=== PATIENT | female | born 1955 | race Caucasian/White ===

== ENCOUNTER → 2018-02-17 08:23 | Outpatient (CLI) | payer OTHER, SELFPAY ==
[2018-02-17 10:36] LABS: Hemoglobin A1c 6.7 % (4.2-6.3)
== END ==
PROVIDERS: Family Provider Family Medicine; PCP Family Medicine; Visit Provider Family Medicine
DX: E11.9 Type 2 diabetes mellitus without complications (principal)
CPT/HCPCS: 36415; 83036

== ENCOUNTER → 2018-05-23 08:46 | Outpatient (CLI) | payer OTHER, SELFPAY ==
[2018-05-17 09:56] VITALS: BMI 42.0
[2018-05-23 09:43] LABS: ALB/GLOB Ratio 0.8 RATIO (0.9-2.4); AST(SGOT) 15 U/L (15-37); Alanine Aminotransfer ALT/SGPT 30 U/L (13-56); Albumin, Serum 3.3 g/dL (3.2-5.0); Alkaline Phosphatase 133 U/L (45-117); Anion Gap 6 (5-15); BUN 21 mg/dL (7-18); BUN/Creat Ratio 24.5 RATIO (10-20); Chloride 109 mmol/L (98-107); Cholesterol 132 mg/dL (200); Creatinine, Serum 0.86 mg/dL (0.55-1.02); EST Glomerular Filtration Rate 71 mL/min (>60); Est Glom Filt Rate - Afr Amer 86 mL/min (>60); Globulin 4.2 g/dL (2.2-4.2); Glucose 177 mg/dL (74-106); High Density Lipoprotein 39 mg/dL; Potassium 4.6 mmol/L (3.5-5.1); Protein, Total 7.5 g/dL (6.4-8.2); Sodium Level 142 mmol/L (136-145); Triglycerides 151 mg/dL; Very Low Density Lipoprotein 30 mg/dL (5-40)
[2018-05-23 10:39] LABS: Hemoglobin A1c 7.3 % (4.2-6.3)
--- OUTSIDE RECORDS SUMMARY | 2018-07-16 10:56 | XMS RPT_ITS ---
:1955 Author Organization OHIP Care Team Providers Name Role Phone Edda Dubois Attending Unavailable Brown, Herbert Attending Unavailable Brown, Herbert Referring Unavailable Brown, Herbert Primary Care Unavailable Brown, Herbert Attending Unavailable Brown, Herbert Referring Unavailable Brown, Herbert Primary Care Unavailable Brown, Herbert Attending Unavailable Brown, Herbert Referring Unavailable Brown, Herbert Attending Unavailable Brown, Herbert Referring Unavailable Brown, Herbert Attending Unavailable Enmanuel, Herbert Referring Unavailable Herbert Singer Primary Care Unavailable PROBLEMS PROBLEMS DATE TYPE CONDITION / CODE ATTENDING STATUS SOURCE 05/17/2018 Unknown E11.9 - Type 2 Herbert Singer Active [place] diabetes mellitus Community without Hospital complications / Repository E11.9(ICD-10) 05/17/2018 Unknown E78.5 - Enmanuel, Herbert Active [facility] Hyperlipidemia, Community unspecified / Hospital E78.5(ICD-10) Repository 03/29/2018 Unknown Z23 - Encounter for Herbert Singer Active [place] immunization / Community Z23(ICD-10) Hospital Repository 02/16/2018 Unknown E78.2 - Mixed Enmanuel, Herbert Active [place] hyperlipidemia / Community E78.2(ICD-10) Hospital Repository 02/16/2018 Unknown I10 - Essential Herbert Singer Active [place] (primary) Community hypertension / Hospital I10(ICD-10) Repository PROCEDURES PROCEDURES No Procedure Records FoundRESULTS RESULTS COMPREHENSIVE METABOLIC Collected: 05/23/2018 Status: F Source: T[place]A PROFIL 8:54 AM [facility], [facility] HOSPITAL REPOSITORY TYPE CODE TESTS RESULT OUT OF RANGE REFERENCE UNITS LAB L501.0100 74-106 mg/dL High GLU 177 Result Comment: Fasting Glucose result greater than or equal to 126 mg/dL suggests DIABETES MELLITUS per A.D.A. criteria. Please note revised GLUCOSE reference range effective 2017. LAB L501.1000 7-18 mg/dL High BUN 21 LAB L501.1100 0.55-1.02 mg/dL Normal CREAT,SERUM 0.86 Result Comment: The validity of the calculated GFR AND GFRAA in patients over 70 years has not been determined. Clinical correlation is essential. LAB L501.1110 >60 mL/min Normal EST GFR 71 Result Comment: Non- GFR Calc LAB L501.1115 >60 mL/min Normal EST GFR - AA 86 Result Comment: GFR Calc LAB L501.1300 10-20 RATIO High BUN/CRE 24.5 LAB L501.1500 6.4-8.2 g/dL T Normal PROT 7.5 LAB L501.1800 3.2-5.0 g/dL Normal ALB 3.3 LAB L501.1950 2.2-4.2 g/dL Normal GLOB 4.2 LAB L501.2000 0.9-2.4 RATIO Low A/G 0.8 LAB L501.2200 8.5-10.1 mg/dL CA Normal 9.0 LAB L501.4100 15-37 U/L Normal AST 15 LAB L501.4305 45-117 U/L High ALK P 133 LAB L501.4405 13-56 U/L Normal ALT 30 LAB L501.4600 0.20-1.00 mg/dL T Normal BILI 0.60 LAB L501.5300 136-145 mmol/L NA Normal 142 LAB L501.5600 3.5-5.1 mmol/L K Normal 4.6 LAB L501.5900 98-107 mmol/L High CL 109 LAB L501.6100 21.0-32.0 mmol/L Normal CO2 27.0 LAB L501.6200 5-15 Normal GAP 6 Performed By: #### L500.4050, L500.4100 #### [facility] [address], [place], [id number] LIPID PROFILE Collected: 05/23/2018 Status: F Source: [place] 8:54 AM [facility] REPOSITORY TYPE CODE TESTS RESULT OUT OF RANGE REFERENCE UNITS LAB L501.4900 200 mg/dL Normal CHOL 132 Result Comment: <200 mg/dL Desirable 200-240 mg/dL Borderline >240 mg/dL High Risk LAB L501.5000 mg/dL Normal TRIG 151 Result Comment: The drugs N-Acetylcysteine and Metamizole may falsely depress this assay. Serum Triglycerides Reference Interval Normal <150 mg/dL Borderline high 150 - 199 mg/dL High 200 - 499 mg/dL Very High > or = 500 mg/dL LAB L501.6400 mg/dL Low HDL 39 Result Comment: The drugs N-Acetylcysteine and Metamizole may falsely depress this assay. Reference Range HDL <40 mg/dL Low HDL Cholesterol HDL >or= 60 mg/dL High HDL Cholesterol LAB L501.6500 0-130 mg/dL Normal LDL 63 LAB L501.6600 5-40 mg/dL Normal VLDL 30 Performed By: #### L500.4050, L500.4100 #### [facility] [address], [place], [id number] HEMOGLOBIN A1C Collected: 05/23/2018 Status: F Source: [place] 8:54 AM [facility] REPOSITORY TYPE CODE TESTS RESULT OUT OF RANGE REFERENCE UNITS LAB L501.9985 4.2-6.3 % High HGB A1C 7.3 Performed By: #### L501.9985 #### [facility] [address], [address] INTERNAL MEDICINE Observed: 05/17/2018 Status: F Source: TANYA OFFICE VISIT 10:31 AM [facility] REPOSITORY [facility] [address] [place] [address] OFFICE VISIT Date of Service: 05/17/18 MR#: [id number] Acct: [id number] Name: PARIS MERIDA Rep #: [id number] : 1955 Provider: Herbert Singer DO Age/Sex: 62/F Location: [facility] Status: Signed Intake Vital Signs05/17/18 Height 5 ft 5 in Intake Visit Reasons: 3 MO FU Is patient in pain?: Yes (Back, Middle ) Pain scale (1-10): 4 Allergies No Known Allergies Allergy (Verified 05/17/18 09:54) Medications blood sugar diagnostic strips See Dose Instructions .ROUTE .MEDSUPPLY #20 ea 12/24/17 [History Confirmed 05/17/18] pen needle, diabetic 31 gauge x 5/16 See Dose Instructions .ROUTE .MEDSUPPLY #30 ea 12/24/17 [History Confirmed 05/17/18] atorvastatin 80 mg tablet 80 mg PO QHS #90 tab 02/15/18 [Rx Confirmed 05/17/18] empagliflozin 10 mg tablet 10 mg PO QDAY #90 tab 02/15/18 [Rx Confirmed 05/17/18] insulin lispro (U- 100) 100 unit/mL subcutaneous pen 10 unit SC TIDCM #15 ml 02/15/18 [Rx Confirmed 05/17/18] losartan 100 mg tablet 100 mg PO DAILY #90 tab 02/15/18 [Rx Confirmed 05/17/18] insulin glargine (U-100) 100 unit/mL (3 mL) subcutaneous pen 100 unit PO QHS #15 ml 05/17/18 [Rx Confirmed 05/17/18] Post menopausal: Yes Nurse's Note: Pt presents today for a f/u on DMT2. [facility] Medical History Hypertension (Chronic) Hyperlipidemia (Chronic) Diabetes (Chronic) Surgical History History of cholecystectomy (Acute) History of orthopedic surgery (Acute) History of tonsillectomy and adenoidectomy (Acute) Family History Brother Seizures Mother Diabetes Hypertension Ovarian cancer Sister Diabetes Hypertension Father Diabetes Prostate cancer Skin cancer Social History Smoking Status: Never smoker alcohol intake: never substance use type: does not use what type of physical activity do you participate in: walking HPI HPI Details: PARIS MERIDA, is a 62 F who presents to the office today for a checkup on her diabetes and evaluation of a back strain. ROS Const Constitutional: No anorexia, body ache, chills, fever(s), decreased energy, malaise, night sweats, weight change, sleep problems, other, snoring, weakness, frequent falls, headache(s), abnormal sleep pattern, change in appetite, excessive sweating or fatigue Eyes Eyes: No blurry vision, change in vision, double vision, discharge, dry eyes, bulging eyes, floaters, eye pain, light sensitivity, spots in vision, tunnel vision, other or visual disturbances ENT ENT: No ear pain, ear discharge, ear pressure, hearing loss, tinnitus, dizziness/vertigo, balance problems, nosebleed/epistaxis, nasal congestion, nasal obstruction, nose pain, sinus pressure, sinus pain, nasal discharge, post nasal drip, facial pain, dental pain, dry mouth, bad breath, hoarseness, mouth lesions, mouth pain, sore throat, difficulty swallowing, neck pain, abnormal hearing, headache(s), other, lip swelling, throat swelling or tongue swelling Resp Respiratory: No cough, change in phlegm color, chest congestion, excessive phlegm production, hemoptysis, pain on inspiration, shortness of breath, pain with cough, snoring, stridor, other or wheezing Cardio Cardiology: No chest pain at rest, chest pain with exertion, leg pain with exertion, shortness of breath, dyspnea on exertion, generalized swelling, irregular heart rhythm, lightheadedness, orthopnea, radiating jaw, neck or arm pain, fast heart rate, slow heart rate, palpitations, other or excessive sweating Gastro GI: No abdominal pain, belching, bloating, change in bowel habits, change in stool character, coffee ground emesis, constipation, cramping, diarrhea, heartburn, difficulty swallowing, feeling full early, excessive flatus, incontinent of stools, Vomiting blood/hematemesis, blood in stool, loose stools, Black,tarry stools, nausea/dyspepsia, pain with swallowing, vomiting or other Genitourinary-Female: No difficulty urinating, burning urination, painful urination, urinary incontinence, urinary frequency, urinary urgency, urinary hesitancy, urinary retention, blood in urine, Frequent nighttime urination/ nocturia, post void dribbling, suprapubic fullness, side pain, sexual problems, genital lesions, genital itching, hot flashes, abnormal periods, abnormal vaginal bleeding, absent period, painful periods, light periods, heavy periods, difficulty getting , painful intercourse, pelvic pain, vaginal dryness, vaginal odor, Vaginal Itching or other Musc Musculoskeletal: No joint pain, back pain, deformity, joint swelling, limited range of motion, loss of height, muscle cramps, muscle weakness, decreased muscle mass, body aches, neck pain, radiating pain into limb, stiffness, other, abnormal walking, numbness or tingling Skin Skin: No acne, hair loss, change in hair, nail changes, boil, change in skin color, dry skin, redness, excessive hair growth, yellowing of the skin, lesions, rash, skin pain, skin ulcer, sores, skin swelling, wounds, other or itching Breast Breast: No change in breast shape, breast lump, breast pain, breast skin changes, breast swelling, nipple discharge or other Neuro Neurology: No abnormal walking, abnormal hearing, abnormal movements, abnormal speech, unsteady gait/balance, dizziness, weakness, frequent falls, headache(s), lack of coordination, loss of vision, numbness, tingling, visual disturbances, restless legs, fainting, tremor(s), other, behavioral changes, confusion or memory loss Psych Psychiatric: No abnormal sleep pattern, No lack of enjoyment, No anxiety, No behavioral changes, No change in appetite, No confusion, No depression, No difficulty concentrating, No hopelessness, No irritability, No memory loss, No mood swings, No panic attacks, No paranoia, No Thoughts of harming yourself/Others, No hallucinations, No other Endo Endocrine: No change in body appearance, cold intolerance, excessive sweating, fatigue, flushing, heat intolerance, increased thirst/drinking, increased hunger, increased urination or other Aller/Imm Allergy/Immunologic: No food intolerance, itchy eyes, lip swelling, seasonal allergy symptoms, throat swelling, tongue swelling, hives, wheezing or other Darci/Lymp Hematologic/Lymphatic: No easy bleeding, easy bruising, enlarged lymph nodes or other Exam Const General: cooperative Nutritional Appearance: overweight Orientation: oriented x3 Resp Effort AND Inspection: normal respiratory effort Auscultation: Bilateral: Clear to Auscultation Cardio Rate: regular rate Rhythm: regular rhythm Musc Musculoskeletal: No muscle weakness Thoracic/Lumbar Spine: straight leg raise negative bilaterally, thoracic spinal tenderness (minimal pain, at T12, L1) Skin General: no rashes or lesions noted Neuro General: normal sensation to monofilament Extrem General: no clubbing, cyanosis or edema Psych Appearance: grossly normal Mental Status: mental status grossly normal Affect: normal affect Assessment AND Plan Problems 1. Mixed hyperlipidemia E78.2 2. Essential hypertension I10 3. Diabetes E11.9 4. Back strain S39.012A Plan Patient was seen for recheck on her diabetes. Her blood pressure is well controlled her weight is stable she encountered some heavy lifting several weeks ago and has a mild amount of back pain. Physical examination on her back and neurologic examination was normal I gave her some simple exercises to do and told her to take NSAIDs. As far as his diabetes control is concerned we will evaluate that with blood work that was ordered. Orders Orders: Medications Refilled: Plan Detail Follow Up 3 Months Coding Level of Care Code Off vis,est,level 3 Diagnoses Mixed hyperlipidemia E78.2 Hyperlipidemia type: mixed hyperlipidemia Essential hypertension I10 Hypertension type: essential hypertension Diabetes E11.9 Diabetes mellitus shelter insulin use: with shelter use Back strain S39.012A 05/17/18 1031 <Electronically signed by Herbert Singer DO> Date Herbert Singer DO Cosigner Signature: Date (if applicable) CC: OFFICE VISIT REPORT Observed: 03/29/2018 Status: F Source: [place] 12:54 PM [place] [address] [address] [place] [address] OFFICE VISIT Date of Service: 03/29/18 MR#: [id number] Acct: [id number] Patient: PARIS MERIDA Rep #: [id number] : 1955 Provider: Herbert Singer DO Age/Sex: 62/F Location: [facility] Status: Signed Intake Intake Visit Reasons: Flu shot Allergies No Known Allergies Allergy (Verified 03/29/18 11:37) Medications Valsartan [Diovan] 80 mg PO DAILY 10/20/13 [History Confirmed 03/29/18] blood sugar diagnostic strips See Dose Instructions .ROUTE .MEDSUPPLY #20 ea 12/24/17 [History Confirmed 03/29/18] pen needle, diabetic 31 gauge x 5/16 See Dose Instructions .ROUTE .MEDSUPPLY #30 ea 12/24/17 [History Confirmed 03/29/18] atorvastatin 80 mg tablet 80 mg PO QHS #90 tab 02/15/18 [Rx Confirmed 03/29/18] empagliflozin 10 mg tablet 10 mg PO QDAY #90 tab 02/15/18 [Rx Confirmed 03/29/18] insulin glargine (U-100) 100 unit/mL (3 mL) subcutaneous pen 100 unit PO QHS #15 ml 02/15/18 [Rx Confirmed 03/29/18] insulin lispro (U- 100) 100 unit/mL subcutaneous pen 10 unit SC TIDCM #15 ml 02/15/18 [Rx Confirmed 03/29/18] losartan 100 mg tablet 100 mg PO DAILY #90 tab 02/15/18 [Rx Confirmed 03/29/18] Office Meds Flucelvax Quad [id number] (PF) Performing Provider: Herbert Singer DO Administered by: Edda Duobis on 03/29/18 11:36 Dose Route Admin Location Lot Number Expiration Date NDC Filter Operator 0.5 mL IM Lt Deltoid [id number] 12/18/18 69162-394-19 SEQIRUS Assessment AND Plan Orders Orders: Medications Discontinued: Flucelvax Quad [id number] (PF) (flu vac qs 2017(4 yr up)CD(P0.5 mL IM ONCE 1 mL 0RF NS Z23 F)) Discontinued Reason: Office Medication has been Doc umented as given 03/29/18 1254 <Electronically signed by Herbert Singer DO> Date Herbert Singer DO Cosigner Signature: Date (if applicable) CC: HEMOGLOBIN A1C Collected: 02/17/2018 Status: F Source: [place] 8:35 AM [facility] REPOSITORY TYPE CODE TESTS RESULT OUT OF RANGE REFERENCE UNITS LAB L501.9985 4.2-6.3 % High HGB A1C 6.7 Performed By: #### L501.9985 #### [facility] [address] [place], [address] INTERNAL MEDICINE Observed: 02/15/2018 Status: F Source: [place] OFFICE VISIT 1:34 PM [facility] REPOSITORY [facility] [address] [place] [address] [place] [address] OFFICE VISIT Date of Service: 02/15/18 MR#: [id number] Acct: [id number] Name: PARIS MERIDA Rep #: [id number] : 1955 Provider: Herbert Singer DO Age/Sex: 62/F Location: [facility] Status: Signed Intake Vital Signs02/15/18 Height 5 ft 5 in 02/15/18 Weight: 253 lb 02/15/18 Body Mass Index (BMI) 42.0 02/15/18 Blood Pressure 145/84 Intake Visit Reasons: EST Is patient in pain?: No Allergies No Known Allergies Allergy (Verified 10/19/16 06:25) Medications Valsartan [Diovan] 80 mg PO DAILY 10/20/13 [History Confirmed 02/15/18] blood sugar diagnostic strips See Dose Instructions .ROUTE .MEDSUPPLY #20 ea 12/24/17 [History Confirmed 02/15/18] pen needle, diabetic 31 gauge x /16 See Dose Instructions .ROUTE .MEDSUPPLY #30 ea 12/24/17 [History Confirmed 02/15/18] atorvastatin 80 mg tablet 80 mg PO QHS #90 tab 02/15/18 [Rx Confirmed 02/15/18] empagliflozin 10 mg tablet 10 mg PO QDAY #90 tab 02/15/18 [Rx Confirmed 02/15/18] insulin glargine (U-100) 100 unit/mL (3 mL) subcutaneous pen 100 unit PO QHS #15 ml 02/15/18 [Rx Confirmed 02/15/18] insulin lispro (U-100) 100 unit/mL subcutaneous pen 10 unit SC TIDCM #15 ml 02/15/18 [Rx Confirmed 02/15/18] losartan 100 mg tablet 100 mg PO DAILY #90 tab 02/15/18 [Rx Confirmed 02/15/18] Post menopausal: Yes PFSH Medical History Hypertension (Chronic) Hyperlipidemia (Chronic) Diabetes (Chronic) Surgical History History of cholecystectomy (Acute) History of orthopedic surgery (Acute) History of tonsillectomy and adenoidectomy (Acute) Family History Brother Seizures Mother Diabetes Hypertension Ovarian cancer Sister Diabetes Hypertension Father Diabetes Prostate cancer Skin cancer Social History Smoking Status: Never smoker alcohol intake: never substance use type: does not use what type of physical activity do you participate in: walking HPI HPI Details: PARIS MERIDA, is a 62 F who presents to the office today for a check up on her diabetes, she voices no new complaints. ROS Const Constitutional: No weight change, body ache, chills, fatigue, sleep problems, fever(s), change in appetite, snoring, weakness, frequent falls, headache(s) or excessive sweating Eyes Eyes: No change in vision, eye pain, light sensitivity or blurry vision ENT ENT: No headache(s), abnormal hearing, ear pain, tinnitus, nasal congestion, sore throat or neck pain Resp Respiratory: No snoring, cough, shortness of breath or wheezing Cardio Cardiology: No excessive sweating, chest pain at rest, chest pain with exertion, shortness of breath, dyspnea on exertion, palpitations, orthopnea or lightheadedness Gastro GI: No abdominal pain, change in bowel habits, constipation, diarrhea, vomiting, nausea/dyspepsia or cramping Genitourinary-Female: No burning urination, painful urination, urinary incontinence, urinary frequency, abnormal vaginal bleeding, pelvic pain or other Musc Musculoskeletal: No neck pain, abnormal walking, joint pain, back pain, limited range of motion, numbness or tingling Skin Skin: No redness, dry skin, itching, lesions, wounds or rash Neuro Neurology: No weakness, frequent falls, headache(s), abnormal hearing, abnormal walking, numbness, tingling, abnormal speech, dizziness or memory loss Psych Psychiatric: No change in appetite, No memory loss, No anxiety, No depression, No Thoughts of harming yourself/Others Endo Endocrine: No fatigue, excessive sweating, cold intolerance, increased thirst/drinking, heat intolerance, flushing or increased hunger Aller/Imm Allergy/Immunologic: No wheezing, itchy eyes, hives or seasonal allergy symptoms Darci/Lymp Hematologic/Lymphatic: No easy bleeding, easy bruising or enlarged lymph nodes Exam Const General: cooperative, healthy appearing Nutritional Appearance: overweight Orientation: oriented x3 Resp Effort AND Inspection: normal respiratory effort Auscultation: Bilateral: Clear to Auscultation Assessment AND Plan Problems 1. Diabetes E11.9 2. Mixed hyperlipidemia E78.2 3. Essential hypertension I10 Plan This patient was seen on a routine diabetic recheck basis. Her last hemoglobin A1c from her old office records was 7.7. At that time a lipid screen and a complete metabolic profile was done and they were normal so I saw no need to repeat those tests. She is recently retired voices no complaints physical examination was unchanged from previous exams. Orders Orders: Medications New: Changed: Refilled: Plan Detail Follow Up 3 Months Coding Level of Care Code Off vis,est,level 3 Diagnoses Diabetes E11.9 Diabetes mellitus exterminator insulin use: with shelter use Mixed hyperlipidemia E78.2 Hyperlipidemia type: mixed hyperlipidemia Essential hypertension I10 Hypertension type: essential hypertension 02/15/18 1334 <Electronically signed by Herbert Singer DO> Date Herbert Singer DO Cosigner Signature: Date (if applicable) CC: ALLERGIES ALLERGIES DATE TYPE / CODE NAME / CODE REACTION SEVERITY SOURCE 05/17/2018 Drug No Known Unknown [facility] Allergy/4160 Allergies/F00 [facility] [address](SNOMED [id number](RXNOR Repository CT) M) ENCOUNTERS ENCOUNTERS ADMIT/DISCHARGE ACCOUNT ADMITTING ENCOUNTER LOCATION SOURCE NUMBER CLASS 05/23/2018 [id number] Ambulatory [place] Tanya 0 [facility] ing:LAB Repository 05/17/2018/ [id number] Ambulatory BMS[facility] [place] 8 [facility] [place] 03/29/2018/ [id number] Ambulatory BMS[facility]:B [place] 8 [facility] 02/17/2018 [id number] Ambulatory [facility] 8 [facility] ing:MTLAB Repository 02/15/2018/ [id number] Ambulatory BMSBuilding:B [place] 8 8 [facility] [place] 12/24/2017 [id number] Ambulatory BMSBuilding:B [place] 1 [facility] [place] PAYERS PAYERS ENCOUNTER GUARANTOR PAYER SUBSCRIBER SOURCE 05/23/2018 PARIS MERIDA3363 Primary PARIS Martínez VIOLA Insurance:CLINT SOLORIO: [facility] [place] BENEFIT [id number] Hospital [address]Bge: [phone]) ADMINISTRATIPolicy Repository [phone] () Number: [id number] Date:[id number] [facility] [address] [address]KV: 05/23/2018 Secondary NOT GIVENUNK Barry Insurance:SELF PAY Community INSURANCEPolicy Number: Hospital Effective Repository Date:2018-05-23 05/17/2018 PARIS DELGADO Primary PARIS BERRY Insurance:MERCSHAYE MERIDADOB: [place] BEN[place] [id number] Hospital [address]Kau: (482) ADMINISTRATIPolicy Repository [phone] () Number: [id number] Date:6470-37-64OFDY [facility] [id number] [place] [id number]: 05/17/2018 Secondary NOT GIVENUNK Tanya Insurance:SELF PAY Community INSURANCEPolicy Number: Hospital Effective Repository Date:2018-04-12 03/29/2018 PARIS BOTELLO63 Primary PARIS BERRY Insurance:CLINT MERIDADOB: [place] [id number] [id number]: [phone]) ADMINISTRATIPolicy Repository [phone] () Number: [id number] Date:[id number] [facility] [address] [address]JX: 03/29/2018 Secondary NOT GIVENUNK Tanya Insurance:SELF PAY Community INSURANCEPolicy Number: Hospital Effective Repository Date:2018-03-29 02/17/2018 PARIS DELGADO Primary PARIS BERRY Insurance:CLINT BERGERONB: [place] BEN[place] [id number] Hospital [address]Dzz: [phone]) ADMINISTRATIPolicy Repository [phone] () Number: [id number] Date:1947-81-49XZEJ [facility] [id number] [place] [address]QS: 02/17/2018 Secondary NOT GIVENUNK Tanya Insurance:SELF PAY Community INSURANCEPolicy Number: Hospital Effective Repository Date:2018-02-17 02/15/2018 PARIS MERIDA3363 Primary PARIS Martínez VIOLA Insurance:Clint BERGERONB: Community emperatriz SHAH Benefit [id number] Hospital [address]Dse: ([phone]) AdministatioPolicy Repository [phone] () Number: [id number] Date:2017-09-27 02/15/2018 Secondary NOT GIVENUNK Tanya Insurance:SELF PAY Community INSURANCEPolicy Number: Hospital Effective Repository Date:2018-02-15 12/24/2017 Paris Botello63 Primary Paris Martínez [place] Insurance:Homar ImerB: Community emperatriz Shah Number: [id number] [facility] [address]Hhk: (952) [id number] Repository [phone] () Date:2733-83-36[address], [place] [address]IA: 12/24/2017 Secondary NOT GIVENUNK Barry Insurance:SELF PAY Community INSURANCEPolicy Number: Hospital Effective Repository Date:2017-12-24
== END ==
PROVIDERS: Family Provider Family Medicine; PCP Family Medicine; Referring Provider Family Medicine; Visit Provider Family Medicine
DX: E11.9 Type 2 diabetes mellitus without complications (principal); E78.5 Hyperlipidemia, unspecified
CPT/HCPCS: 36415; 80053; 80061; 83036

== ENCOUNTER 2018-12-05 09:55 | Day surgery (SDC) | payer OTHER, SELFPAY ==
--- NOTE | 2018-11-29 02:08 | HP_ITS ---
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 Is patient in pain?: No Allergies amlodipine Allergy (Intermediate, Verified 11/29/18 13:27) hives Medications blood sugar diagnostic strips See Dose Instructions .ROUTE .MEDSUPPLY #20 ea 12/24/17 [History Confirmed 11/17/18] pen needle, diabetic 31 gauge x 11/03 See Dose Instructions .ROUTE .MEDSUPPLY #30 ea 12/24/17 [History Confirmed 11/17/18] losartan 100 mg tablet 100 mg PO DAILY #90 tab 02/15/18 [Rx Confirmed 11/17/18] hydroxyzine HCl 25 mg tablet 25 mg PO TID-QID PRN #30 tab 08/16/18 [Rx Confirmed 11/17/18] hydrochlorothiazide 12.5 mg tablet 12.5 mg PO DAILY #90 tab 08/30/18 [Rx Confirmed 11/17/18] atorvastatin 80 mg tablet 80 mg PO QHS #90 tab 11/17/18 [Rx Confirmed 11/17/18] empagliflozin 10 mg tablet 10 mg PO QDAY #90 tab 11/17/18 [Rx Confirmed 11/17/18] insulin glargine (U-100) 100 unit/mL (3 mL) subcutaneous pen 100 unit PO QHS #15 ml 11/17/18 [Rx Confirmed 11/17/18] insulin lispro (U- 100) 100 unit/mL subcutaneous pen 10 unit SC TIDCM #15 ml 11/17/18 [Rx Confirmed 11/17/18] Is last menstrual period known: No Post menopausal: Yes Patient : No PFSH Medical History Hypertension (Chronic) Hyperlipidemia (Chronic) Diabetes (Chronic) Surgical History History of cholecystectomy (Acute) History of orthopedic surgery (Acute) History of tonsillectomy and adenoidectomy (Acute) Family History Brother Seizures Mother Diabetes Hypertension Ovarian cancer Sister Diabetes Hypertension Father Diabetes Prostate cancer Skin cancer Social History Smoking Status: Never smoker alcohol intake: never substance use type: does not use what type of physical activity do you participate in: walking HPI HPI HPI: GASPER MERIDA, is a 63 F who presents to the office today for HPI HPI Surgical H&P: Yes HPI: GASPER MERIDA, is a 63 F who presents to the office today for mass on her back. She says is been growing for 5 years. It is bothering her especially when she is sitting or showering. It does not shrink and it only grows. There is no drainage. There is no redness. ROS General General: Yes weight change and fatigue; no appetite, colon cancer, breast cancer or weakness HEENT HEENT: No difficulty swallowing, eye injury, eye surgery, swollen glands or hoarseness Endo Endocrine: Yes diabetes mellitus; no thyroid disease, thyroid cancer, Hair loss, heat intolerance or cold intolerance Musc Musculoskeletal: No back problems, arthritis, rheumatoid arthritis, gout or joint pain Cardio Cardiovascular: Yes high blood pressure; no murmur, pacemaker, heart disease, atrial fibrillation, heart attack, heart stent, palpitations, shortness of breat with exertion or chest pain Resp Respiratory: No shortness of breath, No sleep apnea, No cough, No COPD, No asthma, No emphysema, No wheezing Gastro Gastrointestinal: No abdominal pain, No nausea or vomiting, No diarrhea, No constipation, No blood in stool, Yes acid reflux, No hemorrhoids, No ulcers, No gallbladder problem, No black,tarry stools Neuro Neurologic: No weakness Exam Const General: cooperative Orientation: alert, oriented x3 Resp Effort & Inspection: normal respiratory effort Auscultation: clear to auscultation bilaterally Cardio Rate: regular rate Rhythm: regular rhythm Heart Sounds: no murmurs GI Inspection: non-distended Palpation: soft, nontender Skin Other: Patient is a large soft lesion on her back which is approximately 10 cm in diameter. Assessment & Plan Problems 1. Lipoma of back D17.1 Plan Patient has a large painful lipoma of the back which is been growing for 5 years. It is giving her problems when she is sitting or showering. She would like this excised. I explained the procedure in detail as well as the risks of bleeding and infection. Patient would like this done in the operating room under MAC anesthesia. Patient understands risks and is willing to proceed. Corona Ramey MD Pager: [facility] [address] [place] [address], [address] [place] [address] Office: Coding Level of Care Code Off vis,new,level 3 Diagnoses Lipoma of back D17.1 11/29/18 1408 <Electronically signed by Corona Ramey MD> Date Corona Ramey MD I have re-examined the patient. There are no clinical changes since date of exam.
[2018-11-29 13:27] VITALS: BMI 41.2
[2018-12-05 10:41] VITALS: BP 142/76; PULSE 68; RESP 16; TEMP 36.9; O2SAT 97; BMI 40.8
[2018-12-05 11:05] LABS: Bedside Glucose 146 mg/dL (70-110)
[2018-12-05] MEDS: Cefazolin 2 GM in 0.9% Normal Saline 100 ML IV (11:29)
[2018-12-05 12:16] VITALS: BP 131/68; BP 142/76; PULSE 66; RESP 16; TEMP 36.3; O2SAT 87
--- NOTE | 2018-12-05 12:16 | PCM.OPRPT ---
Problem List (1) Lipoma of back Status: Chronic Report of Operation Date of Procedure: 12/05/18 Pre-Operative Diagnosis: Lipoma of the back Post-Operative Diagnosis: Lipoma of the back Surgery/Procedure Performed:: Excision of deep lipoma of the back measuring 12 cm in diameter Description of Surgical Findings:: Deep lipoma measuring 12 cm Specimen's removed: Lipoma of the back Description of Procedure: Patient was intubated and general anesthesia was induced and she was turned into a prone position. The back was prepped draped in usual sterile fashion. A horizontal incision was marked and then anesthetized. An incision was made with a scalpel and this was deepened to the lipoma. Using a combination of blunt and cautery dissection the lipoma was circumferentially dissected and delivered through the incision. It measured approximately 12 cm in diameter. The cavity was irrigated and suctioned dry. Electrocautery was used to obtain hemostasis. The deep dermis was closed with interrupted 3-0 Vicryl sutures which were also sutured to the lipoma cavity. The skin was then closed with a running 4-0 Monocryl suture and Dermabond was applied. Patient tolerated procedure well and was taken to PACU in stable condition. - Admit VTE Documentation VTE Mechan Device Prophylaxis: SCD's
[2018-12-05 12:30] VITALS: BP 135/62; BP 142/76; PULSE 64; RESP 18; O2SAT 98
[2018-12-05 12:30] LABS: Bedside Glucose 150 mg/dL (70-110)
--- NOTE | 2018-12-05 12:39 | DCINST_ITS ---
You will use the following diet at home:: Regular Your food should be the consistency of: Regular Your liquids should be the consistency of: Regular/Thin Discharge Activity: No Restrictions, May Shower - tomorrow Call your doctor if your incision/area has: Continuous Slow Oozing, Sudden Increased Bleeding, Increased Pain/ Swelling, Increased Redness, Foul Smelling Discharge, Swelling at the incision site Call your doctor if you observe: Fever of 101 or Higher Allergies/Adverse Reactions: Allergies amlodipine Allergy (Intermediate, Verified 12/02/18 13:28) hives Medications to take at Discharge losartan 100 mg tablet 100 mg PO DAILY #90 tab 02/15/18 hydroxyzine HCl 25 mg tablet 25 mg PO TID-QID PRN #30 tab 08/16/18 hydrochlorothiazide 12.5 mg tablet 12.5 mg PO DAILY #90 tab 08/30/18 atorvastatin 80 mg tablet 80 mg PO QHS #90 tab 11/17/18 empagliflozin 10 mg tablet 10 mg PO QDAY #90 tab 11/17/18 insulin glargine (U-100) 100 unit/mL (3 mL) subcutaneous pen 100 unit PO QHS #15 ml 11/17/18 insulin lispro (U- 100) 100 unit/mL subcutaneous pen 10 unit SC TIDCM #15 ml 11/17/18 Oxycodone HCl/Acetaminophen [Percocet 5/325] 1 - 2 tablet PO Q4H PRN PRN 4 Days #30 tablet 12/05/18 The following prescriptions were given: Oxycodone HCl/Acetaminophen [Percocet 5/325] 1 - 2 tablet PO Q4H PRN PRN 4 Days #30 tablet PRN Reason: Pain Primary Care Physician: Herbert Singer DO [Primary Care Provider] - Test Results: Test results from this visit will be discussed in further detail at your follow- up appointment, if applicable. Please Follow Up With: Corona Ramey MD When: Please call to schedule 2 week follow up appointment. [phone]
[2018-12-05 12:46] VITALS: BP 140/69; BP 142/76; PULSE 64; RESP 18; TEMP 36.3; O2SAT 100
--- NOTE | 2018-12-05 13:00 | LIP_PTH ---
PATIENT: GASPER MERIDA LOC: [facility] U#:[id number] AGE/SX: 63/F ROOM: RE12/05/[address]: Dr. Corona Ramey MD : 1955 BED: DIS: 12/05/2018 SPEC #: [id number] RECD: 12/05/18 13:06 STATUS: ENZO WADE #: [id number] SPEEDY: 12/05/18 13:[address]: Corona Ramey DEPT: SURGICAL PATHOLOGY RECD BY: Ramon Henderson ENTERED: 12/05/18 13:28 SP TYPE: LIPOMA OTHR DR: Dr. Herbert Singer, DO Tissues: Back, NOS Procedures: Surgery Specimen Level III HEADER OPERATION: Excision back lipoma PRE-OP DIAGNOSIS: Lipoma of back TISSUE SUBMITTED: Lipoma of back MICROSCOPIC DIAGNOSIS Soft tissue lesion of back, excision: Mature adipose tissue consistent with lipoma. AM:joo 12/06/18 MICROSCOPIC DESCRIPTION Slides are reviewed. GROSS DESCRIPTION Received in fixative is one container labeled with the patient's name and designated lipoma of back. The specimen consists of a lobulated fragment of yellow fatty tissue measuring 12.8 x 9 x 3.5 cm. Serial sections reveal homogenous yellow cut surfaces without areas of cyst formation, necrosis or myxoid change. Clinical Quality Manager sections are submitted in three cassettes. / AM:joo 12/05/18 TC:1 CPT: 15743
[2018-12-05 13:10] VITALS: BP 142/76
== END 2018-12-05 13:14 | disposition home or self-care (01) ==
LOC: SDC 09:56 → AC 10:06
PROVIDERS: Family Provider Family Medicine; PCP Family Medicine; Referring Provider Surgery; Visit Provider Surgery
PROC: (CPT 21931; principal; 2018-12-05 12:45)
DX: D17.1 Benign lipomatous neoplasm of skin and subcutaneous tissue of trunk (principal); E11.9 Type 2 diabetes mellitus without complications; I10 Essential (primary) hypertension; E78.00 Pure hypercholesterolemia, unspecified; Z78.0 Asymptomatic menopausal state; Z79.4 Long term (current) use of insulin; Z79.899 Other long term (current) drug therapy; Z88.8 Allergy status to other drugs, medicaments and biological substances
CPT/HCPCS: 00300; 21931; 82962; 88304; J7120; J2405

== ENCOUNTER → 2019-01-11 17:06 | Outpatient (CLI) | payer OTHER, SELFPAY ==
[2019-01-11 16:52] VITALS: BMI 40.8
--- NOTE | 2019-01-11 17:09 | RAD_ITS ---
STUDY: X-RAY - LEFT KNEE REASON FOR EXAM: Female, 63 years old. Left knee injury in October. No improvement. TECHNIQUE: 4 view(s) of the knee. COMPARISON: None. FINDINGS: Normal visualized distal femur. Normal visualized proximal tibia and fibula. Normal proximal tibiofibular articulation. There is no acute fracture, dislocation or destructive osseous pathology. There is mild degenerative arthrosis of the medial femorotibial compartment. Normal lateral femorotibial compartment. There is mild degenerative arthrosis of the patellofemoral articulation. There is no demonstrated joint effusion. The soft tissue structures are unremarkable. RAD/Knee 4 or More Views IMPRESSION: Degenerative arthrosis. Electronically Signed: Mauro Engel DO at 17:23 EDT Tel [phone], Service support ,
== END ==
PROVIDERS: Family Provider Family Medicine; PCP Family Medicine; Referring Provider Nurse Practitioner Family; Visit Provider Nurse Practitioner Family
DX: M25.562 Pain in left knee (principal)
CPT/HCPCS: 73564

== ENCOUNTER → 2019-07-13 10:45 | Outpatient (CLI) | payer OTHER, SELFPAY ==
[2019-07-13 10:12] VITALS: BMI 40.8
[2019-07-13 13:04] LABS: ALB/GLOB Ratio 0.8 RATIO (0.9-2.4); AST(SGOT) 15 U/L (15-37); Alanine Aminotransfer ALT/SGPT 27 U/L (13-56); Albumin, Serum 3.3 g/dL (3.2-5.0); Alkaline Phosphatase 108 U/L (45-117); Anion Gap 4 (5-15); BUN 18 mg/dL (7-18); BUN/Creat Ratio 22.5 RATIO (10-20); Calcium,Total 9.2 mg/dL (8.5-10.1); Chloride 107 mmol/L (98-107); Cholesterol 151 mg/dL (200); EST Glomerular Filtration Rate 77 mL/min (>60); Est Glom Filt Rate - Afr Amer 93 mL/min (>60); Glucose 107 mg/dL (74-106); High Density Lipoprotein 46 mg/dL; Potassium 4.6 mmol/L (3.5-5.1); Protein, Total 7.3 g/dL (6.4-8.2); Sodium Level 138 mmol/L (136-145); Triglycerides 166 mg/dL; Very Low Density Lipoprotein 33 mg/dL (5-40)
[2019-07-13 13:21] LABS: Microalbumin,Random Urine 8.5 mg/L (NO RANGE EST.)
== END ==
PROVIDERS: PCP Family Medicine; Referring Provider Family Medicine; Visit Provider Family Medicine
DX: I10 Essential (primary) hypertension (principal); E78.5 Hyperlipidemia, unspecified; E11.9 Type 2 diabetes mellitus without complications
CPT/HCPCS: 36415; 80053; 80061; 82043; 82570

== ENCOUNTER → 2020-07-08 | Outpatient (CLI) | payer OTHER, SELFPAY ==
[2020-03-13 15:21] VITALS: BMI 40.8
== END | disposition home or self-care (01) ==
PROVIDERS: PCP Family Medicine; Visit Provider Internal Medicine
DX: U07.1 COVID-19 (principal)
CPT/HCPCS: 87635; U0005; U0003

== ENCOUNTER 2020-08-27 22:50 | Outpatient (RCR) | payer OTHER, SELFPAY ==
[2020-03-13 15:21] VITALS: BMI 40.8
[2020-08-27] MEDS: COVID-19 VACC, MRNA(PFIZER)/PF 30 MCG/0.3 ML SYRINGE IM (14:03)
[2020-09-17] MEDS: COVID-19 VACC, MRNA(PFIZER)/PF 30 MCG/0.3 ML SYRINGE IM (14:03)
== END 2020-11-26 23:59 ==
LOC: IMMUN 22:50
PROVIDERS: PCP Family Medicine; Visit Provider Family Medicine
DX: Z23 Encounter for immunization (principal)
CPT/HCPCS: 0001A; 0002A; 91300

== ENCOUNTER → 2020-09-10 08:56 | Outpatient (CLI) | payer OTHER, SELFPAY ==
[2020-09-10 08:32] VITALS: BMI 42.4
[2020-09-10 12:55] LABS: AST(SGOT) 17 U/L (15-37); Alanine Aminotransfer ALT/SGPT 27 U/L (13-56); Albumin, Serum 3.4 g/dL (3.2-5.0); Alkaline Phosphatase 126 U/L (45-117); Anion Gap 8 (5-15); BUN 20 mg/dL (7-18); BUN/Creat Ratio 24.1 RATIO (10-20); Chloride 107 mmol/L (98-107); Cholesterol 166 mg/dL (200); Creatinine, Serum 0.83 mg/dL (0.55-1.02); EST Glomerular Filtration Rate 73 mL/min (>60); Est Glom Filt Rate - Afr Amer 89 mL/min (>60); Globulin 3.5 g/dL (2.2-4.2); Glucose 123 mg/dL (74-106); High Density Lipoprotein 49 mg/dL; Potassium 4.7 mmol/L (3.5-5.1); Protein, Total 6.9 g/dL (6.4-8.2); Sodium Level 144 mmol/L (136-145); Triglycerides 203 mg/dL; Very Low Density Lipoprotein 41 mg/dL (5-40)
[2020-09-10 13:02] LABS: Microalbumin,Random Urine 15.9 mg/L (NO RANGE EST.)
== END ==
PROVIDERS: PCP Family Medicine; Referring Provider Family Medicine; Visit Provider Family Medicine
DX: E78.5 Hyperlipidemia, unspecified (principal); I10 Essential (primary) hypertension
CPT/HCPCS: 36415; 80053; 80061; 82043; 82570

== ENCOUNTER 2020-10-29 06:19 | Day surgery (SDC) | payer MEDICARE, OTHER, SELFPAY ==
[2020-09-10 08:32] VITALS: BMI 42.4
--- NOTE | 2020-10-29 06:46 | H&P.OPEN ---
HPI - General HPI Narrative GASPER MERIDA, is a 64 F who presents for screening colonoscopy. Patient reports her last colonoscopy was 10 years ago. It was normal. She has no abdominal pain or blood in her stool. Patient does report she has a history of colon cancer in her mother over the age of 60. [facility] Medical History (Updated 10/29/20 @ 06:[address] Corona aRmey MD) Cancer Diabetes GERD (gastroesophageal reflux disease) History of epilepsy Hx of chronic arthritis Hyperlipidemia Hypertension Non-smoker Post-menopausal Restless legs Wears glasses Home Medications ibuprofen 600 mg tablet 600 mg PO TID PRN #30 tab 01/11/19 [Rx Last Taken Unknown] blood sugar diagnostic #50 ea 05/23/19 [Rx Last Taken Unknown] losartan 100 mg tablet 100 mg PO DAILY #90 tab 08/15/19 [Rx Last Taken Unknown] pen needle, diabetic 31 gauge x 11/03 #30 ea 02/08/20 [Rx Last Taken Unknown] atorvastatin 80 mg tablet 80 mg PO QHS #90 tab 03/13/20 [Rx Last Taken Unknown] hydrochlorothiazide 12.5 mg tablet 12.5 mg PO DAILY #20 tab 03/18/20 [Rx Last Taken Unknown] insulin glargine 100 unit/mL (3 mL) subcutaneous pen 100 unit PO QHS #15 ml 08/12/20 [Rx Last Taken Unknown] ascorbate calcium (vitamin C) 500 mg tablet 500 mg PO DAILY 09/10/20 [History Last Taken Unknown] cholecalciferol (vitamin D3) 25 mcg (1,000 unit) capsule 25 mcg PO DAILY 09/10/20 [History Last Taken Unknown] empagliflozin 10 mg tablet 10 mg PO QAM 09/10/20 [History Last Taken Unknown] zinc 50 mg tablet 50 mg PO DAILY 09/10/20 [History Last Taken Unknown] docusate sodium [Colace] 100 mg PO DAILY 10/24/20 [History Last Taken Unknown] insulin lispro [Humalog Pen] 10 unit SUBCUT TID 10/24/20 [History Last Taken Unknown] multivitamin,[id number]-[id number]-min [Multivitamin And Mineral] 1 tab PO DAILY 10/24/20 [History Last Taken Unknown] omeprazole 20 mg PO DAILY 10/24/20 [History Last Taken Unknown] Allergy/AdvReac Type Severity Reaction Status Date / Time amlodipine Allergy Intermediate hives Verified 10/24/20 08:32 Family History Brother Seizures Mother Diabetes Hypertension Ovarian cancer Sister Diabetes Hypertension Father Diabetes Prostate cancer Skin cancer Surgical History (Updated 10/24/20 @ 08:45 by Leta Bryan) History of cholecystectomy History of orthopedic surgery History of tonsillectomy and adenoidectomy Hx of colonoscopy s/p lipoma removal Social History (Updated 09/10/20 @ 08:[address] Herbert Singer, DO) Smoking Status: Never smoker alcohol intake: never substance use type: does not use what type of physical activity do you participate in: walking Past Medical/Surgical History Planned Operation Planned Operative Procedure/s: cscope open access S.O.S: No Previous Hospitalizations/Surgeries HX Hospitalizations: No HX of Surgeries: PILAR FEET 2000 T&A gallbladder 2017 cscope Any Problems With Anesthesia: No You/Your Family Experience Fever (Hyperthermia) With Anes: No Cholinesterase deficiency: No Cardiovascular Hx Chest Pain within Last 2 months: No Hx of Irregular Heartbeat and/or Afib: No Hx Heart Attack: No Hx Congestive Heart Failure: No Hx Rheumatic Fever: No Hx Hypertension: Yes (controlled with med) Hx Internal Defibrillator: No Hx Pacemaker: No Hx Cardiac Catheterization: No Hx Cardiac Surgery/Stents/Etc.: No Hx Stress Test: No Hx Pain in Legs when Walking/Leg Cramps: No Respiratory Chronic Cough: No HX of Shortness of Breath: No (ABLE TO WALK 2 FLIGHTS OF STAIRS WITHOUT SOB) Hoarseness: No Hx Chronic Obstructive Pulmonary Disease (COPD): No Hx Asthma: No Hx Emphysema: No Hx Sleep Apnea: No Hx Respiratory Tract Infection/Cold (presently): No Do You Snore Loudly (louder than talking or can be heard): No Do You Often Feel Tired/ Fatigued/ Sleepy Dring Daytime?: No Has Anyone Observed You Stop Breathing During Sleep?: No Result (for STOP score): Negative Hx Smoking: No Smoking Status: Never smoker Gastrointestinal Hx Gastroesophageal Reflux: No (occ heartburn) Hx Gastrointestinal Disorders: No Hx Gastrointestinal Bleed: No Hx Ulcer: No Hx Hiatal Hernia: No Difficulty Chewing/Swallowing: No Special diet followed at home: Yes (ada) Hx Unplanned Weight Loss of 20#: No HX Unplanned Weight Gain of 20#: No Neurological Hx Seizures: No (epilepsy as child) HX Syncope/Blackout Spells/Unconsciousness: No (.) Hx Transient Ischemic Attacks (TIA): No Hx Multiple Sclerosis: No Hx Parkinson's Disease: No Hx Head/Neck Injury: No Hx Headaches: Yes (occ) Hx Back Injury/Pain: No Recent Onset of Speech Difficulty: No Restless Legs: Yes Does patient have nerve stimulator: No Blood Disorder Hx Leukemia: No Bleeding Tendencies: No Hx Deep Vein Thrombosis: No Hx High Cholesterol: Yes (ON MED) Blood Transmitted Disease: No Hx Hepatitis: No Hx Cirrhosis: No Hx Anemia: No Hx Blood Disorders: No Reproduction : No Is Patient Lactating: No Hx Hysterectomy: No Hx Tubal Ligation: No Are You Post Menopause: Yes Genitourinary Hx Renal Disease: No Musculoskeletal Hx Arthritis: No Hx Rheumatoid Arthritis: No Hx Gout: No Recent Onset of an Orthopedic Problem: No Endocrine Hx Diabetes: Yes Insulin: Yes Thyroid Disease: No Hx Steroid Therapy: No Psycho/Social Hx Substance Use: No Hx Alcohol Use: No Hx Anxiety: No Hx Depression: No Mental Illness: No Hx Dementia: No Miscellaneous Hx Cancer: No Recent Exposure to Contagious Disease: No Hx of C-Diff: No Any Loose Teeth: No Allergies amlodipine Allergy (Intermediate, Verified 10/24/20 08:32) hives Discharge Is Pt Admitted From a Intermediate, or a Half-Way: No After D/C, Where Do you Plan to Go: Return Home From the PAT History Number of Risk Factors: 1 Physical Exam Const alert and oriented x3 Chest inspection of chest normal Resp normal respiratory effort Cardio regular rate and regular rhythm GI soft to palpation, non-tender and non-distended Assessment & Plan Assessment/Plan (1) Screen for colon cancer: PLAN: Patient is a 64-year-old female here for screening colonoscopy I explained endoscopy in detail to the patient. I explained the risks including but not limited to stroke or heart attack with anesthesia, perforation of the GI tract, bleeding, infection. I explained that any of these could necessitate further emergency surgery. The patient understands and all questions were answered sufficiently. The patient wishes to proceed with procedure. Corona Ramey MD Pager: [facility] [address] [place] [address], [address] [place] [phone] Office: Surgery Risks - Colonoscopy Risks Include but are not Limited To: Risks include but are not limited to: Bleeding, perforation requiring further surgery, inability to complete colonoscopy requiring barium enema.
--- NOTE | 2020-10-29 07:00 | HP_ITS ---
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 Is patient in pain?: No Allergies amlodipine Allergy (Intermediate, Verified 12/19/18 09:14) hives Medications losartan 100 mg tablet 100 mg PO DAILY #90 tab 02/15/18 [Rx Confirmed 12/19/18] hydroxyzine HCl 25 mg tablet 25 mg PO TID-QID PRN #30 tab 08/16/18 [Rx Confirmed 12/19/18] hydrochlorothiazide 12.5 mg tablet 12.5 mg PO DAILY #90 tab 08/30/18 [Rx Confirmed 12/19/18] atorvastatin 80 mg tablet 80 mg PO QHS #90 tab 11/17/18 [Rx Confirmed 12/19/18] empagliflozin 10 mg tablet 10 mg PO QDAY #90 tab 11/17/18 [Rx Confirmed 12/19/18] insulin glargine (U-100) 100 unit/mL (3 mL) subcutaneous pen 100 unit PO QHS #15 ml 11/17/18 [Rx Confirmed 12/19/18] insulin lispro (U- 100) 100 unit/mL subcutaneous pen 10 unit SC TIDCM #15 ml 11/17/18 [Rx Confirmed 12/19/18] Subjective Details: Patient is doing well with no complaints Objective Details: Patient's incision is healing well and is clean dry and intact with no fluid collection or erythema or ecchymosis. Assessment & Plan Problems 1. Lipoma of back D17.1 Plan Patient had a large lipoma excised in the back. She is doing well after surgery. She has no signs of infection and is healing well. Follow-up as needed. Pathology came back as lipoma. Corona Ramey MD Pager: [facility] [address] [place] [address], [address] [place] [address] Office: Coding Level of Care Code Global Post Op Diagnoses Lipoma of back D17.1
[2020-10-29 07:05] VITALS: BP 152/71; PULSE 69; RESP 16; TEMP 36.3; O2SAT 95; BMI 41.9
[2020-10-29] MEDS: Lactated Ringers 1,000 ML 100 ML IV (07:05)
--- NOTE | 2020-10-29 07:59 | OP.CCLET_ITS ---
10/29/2020 Herbert Singer Re : Colonoscopy procedure for Paris Rodney Dear Dr. Singer This procedure was performed on Thursday, October 29, 2020. My impressions and recommendations are as follows: Impressions : - The entire examined colon is normal on direct and retroflexion views. - No specimens collected. Recommendations : - Discharge patient to home. - Resume previous diet. - Continue present medications. - Repeat colonoscopy in 10 years for screening purposes. My findings are described in the full procedure note, which is enclosed. If I can be of further assistance, please feel free to contact me at Doctor phone number(s): , Work: . Sincerely, Corona Ramey MD 10/29/2020 7:58:43 AM This report has been signed electronically.
--- NOTE | 2020-10-29 07:59 | OP.COLON_ITS ---
Patient Name: Paris Rodney Procedure Date: 10/29/2020 7:34 AM Date of : 1955 Age: 64 Procedure: Colonoscopy Indications: Screening for colorectal malignant neoplasm Providers: Corona Ramey MD Referring MD: Herbert Singer Medicines: Monitored Anesthesia Care Patient Profile: This is a 64 year old female. Refer to note in patient chart for documentation of history and physical. Last Colonoscopy: 10 years ago. Complications: No immediate complications. Procedure: Pre-Anesthesia Assessment: - Prior to the procedure, a History and Physical was performed, and patient medications and allergies were reviewed. The patient's tolerance of previous anesthesia was also reviewed. The risks and benefits of the procedure and the sedation options and risks were discussed with the patient. All questions were answered, and informed consent was obtained. Prior Anticoagulants: The patient has taken no previous anticoagulant or antiplatelet agents. After reviewing the risks and benefits, the patient was deemed in satisfactory condition to undergo the procedure. After I obtained informed consent, the scope was passed under direct vision. Throughout the procedure, the patient's blood pressure, pulse, and oxygen saturations were monitored continuously. The Colonoscope was introduced through the anus and advanced to the cecum, identified by appendiceal orifice and ileocecal valve. The colonoscopy was performed without difficulty. The patient tolerated the procedure well. The quality of the bowel preparation was good. Scope In: 7:42:48 AM Scope Withdrawal Time 0 hours 6 minutes 12 seconds Scope Out: 7:55:28 AM Total Procedure Duration Time 0 hours 12 minutes 40 seconds Findings: The entire examined colon appeared normal on direct and retroflexion views. Impression: - The entire examined colon is normal on direct and retroflexion views. - No specimens collected. Recommendation: - Discharge patient to home. - Resume previous diet. - Continue present medications. - Repeat colonoscopy in 10 years for screening purposes. Procedure Code(s): --- Professional --- 62285, Colonoscopy, flexible; diagnostic, including collection of specimen(s) by brushing or washing, when performed (separate procedure) Diagnosis Code(s): --- Professional --- Z12.11, Encounter for screening for malignant neoplasm of colon CPT copyright 2017 [employer]. All rights reserved. The codes documented in this report are preliminary and upon screen stretcher review may be revised to meet current compliance requirements. Corona Ramey MD 10/29/2020 7:58:43 AM This report has been signed electronically. Number of Addenda: 0 Note Initiated On: 10/29/2020 7:34 AM
[2020-10-29 08:00] VITALS: BP 116/63; BP 152/71; PULSE 58; RESP 16; TEMP 36.2; O2SAT 97
[2020-10-29 08:05] VITALS: BP 114/60; BP 152/71; PULSE 59; RESP 16; O2SAT 96
[2020-10-29 08:10] VITALS: BP 123/65; BP 152/71; PULSE 63; RESP 16; O2SAT 96
[2020-10-29 08:15] VITALS: BP 130/61; BP 152/71; PULSE 60; RESP 16; TEMP 36.3; O2SAT 95
[2020-10-29 08:33] VITALS: BP 152/71
[2020-10-29 09:50] LABS: Bedside Glucose 97 mg/dL (70-110)
== END 2020-10-29 09:05 ==
LOC: EN 06:20 → AC 06:21
PROVIDERS: PCP Family Medicine; Referring Provider Family Medicine; Visit Provider Surgery
PROC: 0DJD8ZZ Inspection of Lower Intestinal Tract, Via Natural or Artificial Opening Endoscopic (ICD-10-PCS; CPT 45378; principal; 2020-10-29 07:25)
DX: Z12.11 Encounter for screening for malignant neoplasm of colon (principal); I10 Essential (primary) hypertension; E11.9 Type 2 diabetes mellitus without complications; E78.5 Hyperlipidemia, unspecified; K21.9 Gastro-esophageal reflux disease without esophagitis; Z79.4 Long term (current) use of insulin; Z79.899 Other long term (current) drug therapy; Z80.0 Family history of malignant neoplasm of digestive organs
CPT/HCPCS: G0105; 82962; J7120; J2405

== ENCOUNTER 2021-09-10 09:15 | Outpatient (CLI) | payer MEDICARE, SELFPAY ==
[2021-09-10 12:23] LABS: Absolute Lymphocyte Count 1.98 X10^3/uL (0.83-4.51); Absolute Neutrophil Count 6.2 X10^3/uL (2.0-7.7); Basophil# 0.06 X10^3/uL; Basophil% 0.7 % (0-1); Eosinophil# 0.25 X10^3/uL; Eosinophils% 2.7 % (0-5); Hemoglobin 12.9 g/dL (12.0-15.0); Lymphocyte # 1.98 X10^3/ul (0.83-4.51); Lymphocyte % 21.5 % (19-41); Mean Corp Hgb Conc 31.5 g/dL (32-36); Mean Corpuscular Hgb 30.1 pg (27.0-32.0); Mean Corpuscular Volume 95.8 fL (81-99); Mean Platelet Vol. 10.3 fl (6.2-12.0); Monocyte# 0.69 X10^3/uL; Monocyte% 7.5 % (0-10); NRBC Flagged by Analyzer 0 % (0-5); Neutrophil % 67.4 % (47-70); Platelet Count 217 K/mm3 (150-450); RBC Distribution Width CV 15.1 % (11.6-14.6); RBC Distribution Width SD 53.1 fl (35.1-43.9); Red Blood Count 4.28 M/mm3 (4.2-5.4); White Blood Count 9.2 K/mm3 (4.4-11.0)
[2021-09-10 13:01] LABS: ALB/GLOB Ratio 0.8 RATIO (0.9-2.4); AST(SGOT) 19 U/L (15-37); Alanine Aminotransfer ALT/SGPT 24 U/L (13-56); Albumin, Serum 3.4 g/dL (3.2-5.0); Alkaline Phosphatase 125 U/L (45-117); Anion Gap 4 (5-15); BUN 20 mg/dL (7-18); BUN/Creat Ratio 24.4 RATIO (10-20); Calcium,Total 9.1 mg/dL (8.5-10.1); Chloride 106 mmol/L (98-107); Cholesterol 146 mg/dL (200); Creatinine, Serum 0.82 mg/dL (0.55-1.02); EST Glomerular Filtration Rate 74 mL/min (>60); Est Glom Filt Rate - Afr Amer 90 mL/min (>60); Glucose 99 mg/dL (74-106); High Density Lipoprotein 42 mg/dL; Potassium 4.2 mmol/L (3.5-5.1); Protein, Total 7.4 g/dL (6.4-8.2); Sodium Level 139 mmol/L (136-145); Triglycerides 164 mg/dL; Very Low Density Lipoprotein 33 mg/dL (5-40)
== END 2021-09-10 23:59 | disposition home or self-care (01) ==
PROVIDERS: PCP Family Medicine; Referring Provider Physician Assistant; Visit Provider Physician Assistant
DX: E11.9 Type 2 diabetes mellitus without complications (principal); Z79.4 Long term (current) use of insulin; E78.2 Mixed hyperlipidemia; I10 Essential (primary) hypertension
CPT/HCPCS: 36415; 80053; 80061; 85025

== ENCOUNTER 2021-09-25 14:05 | Outpatient (CLI) | payer MEDICARE, SELFPAY ==
--- NOTE | 2021-09-25 14:07 | BI_ITS ---
MAMMOGRAPHY - BILATERAL SCREENING REASON FOR EXAM: Female, 65 years old. Routine annual screening examination. PERTINENT HISTORY: Non-contributory. TECHNIQUE: Digital bilateral breast brianne (3D mammographic acquisition) in the CC and MLO projections. 2-D mediolateral oblique (MLO) and craniocaudad (CC) views of both breasts were obtained. CAD: Full Field Digital Mammography with Computer Added Detection was performed. COMPARISON: None. Baseline examination. FINDINGS: Breast Composition: There are scattered areas of fibroglandular density. There are no dominant masses or suspicious calcifications. No other significant abnormalities are identified. BI/SCRN MAMM (CAD)W/BRIANNE BILAT IMPRESSION: Negative screening mammogram. Yearly followup mammogram recommended. (A) ASSESSMENT CATEGORY: BIRADS Category 1: Negative. A letter regarding these results will be sent to the patient by the facility within 30 days. Approximately 10% of breast cancers are not detected by mammography. A normal mammogram should not delay biopsy of a clinically suspicious abnormality. [id number] Electronically Signed: Emerson Torres MD at 15:01 EDT ,
== END 2021-09-25 23:59 | disposition home or self-care (01) ==
LOC: OPBI 14:06
PROVIDERS: PCP Family Medicine; Visit Provider Physician Assistant
DX: Z12.31 Encounter for screening mammogram for malignant neoplasm of breast (principal)
CPT/HCPCS: 77063; 77067

== ENCOUNTER → 2022-03-19 | Outpatient (CLI) | payer MEDICARE, SELFPAY ==
--- NOTE | 2022-03-19 09:25 | RAD_ITS ---
EXAM: XR LUMBOSACRAL SPINE, 2 OR 3 VIEWS CLINICAL INDICATION: LOW BACK PAIN TECHNIQUE: Frontal and lateral views of the lumbar spine and sacrum. This report was created using [employer] report [employer] technology. COMPARISON: None. FINDINGS: VERTEBRAE: Normal. Preserved vertebral body height. No fracture. No spondylolisthesis. Preservation of the normal lumbar lordosis. No significant facet arthropathy. DISC SPACES: Disc space narrowing noted at the L2-3 and L3-4 levels associated with mild to moderate vertebral body osteophytosis. RAD/Lumbar Spine 2 or 3 Views IMPRESSION: L2-3 and L3-4 spondylosis. Electronically Signed: Fady Shen MD at 11:01 EDT ,
== END | disposition home or self-care (01) ==
LOC: MTRAD 09:22
PROVIDERS: PCP Family Medicine; Referring Provider Family Medicine; Visit Provider Family Medicine
DX: M47.816 Spondylosis without myelopathy or radiculopathy, lumbar region (principal); G89.29 Other chronic pain
CPT/HCPCS: 72100

== ENCOUNTER 2022-04-22 11:30 | Outpatient (RCR) | payer MEDICARE, SELFPAY ==
--- NOTE | 2022-03-27 08:25 | HP.PTEVAL_ITS ---
Patient's Visit Information GASPER MERIDA is a 66 year old F referred to Physical Therapy by Dr. Herbert Singer DO with a diagnosis of LOW BACK PAIN ,CHRONIC PAIN. Date of Evaluation: 03/27/22 Physical Therapist: Kevin Redd, PT, Cert MDT, OCS - Visit Plan Frequency: 2x /Week Duration: 4 Weeks Plan: PT INTERVENTIONS DLS ,MIKE EX'S ,POSTURAL EX'S ,MODALTIES AND POSTURE TRAINING /ACTIVITY MODIFICATION - Subjective This 66 y/o female presents to physical therapy with lumbar pain and radicular symptoms in legs. Patient has had LBP for ~ 1 year which progressively worsen. Seen DR x-rays DDD and recommended PT . Located symmetrical lumbar and right lateral leg to foot. Aggravating factors walking ,standing extended , elevation from chair ,lifting/bending, Alleviating factors sitting ,rest. Denies paresthesia/tingling -. Bowel/bladder -. Coughing/sneezing-. Patient sleeping good. No MEDS .No h/o trauma or injury. Patient condition affects QOL and function. Patient goals to have no pain. VOCATION: retired. SOCAIL: single - Pain Bilateral Back Pain Intensity (Out of 10): 8 Pain Intensity Range: 10 Right Lower Extremity Pain Intensity (Out of 10): 6 Pain Intensity Range: 10 - Objective POSTURE: mild forward posture. GAIT: reciprocal pattern mild forward posture. NEURO: denies paresthesia/tingling ,reflexes L3-4,L4-5,L5-S1 1/3. SYMMTRIES: align. MMT: quads/hams 4/5 ,ankle 4/5 ,hip flexion 4/5. LUMBAR ROM: flexion min loss ,extension WFL ,side glides min loss. FLEXABLITY : hamstrings WFL - Special Tests L/S Slump test left side: Negative L/S Slump test right side: Negative L/S Left Straight Leg Raise: Negative L/S Right Straight Leg Raise: Negative Lumbar Standing: Flexion - Mechanical Response: No effect Lumbar Standing: Flexion - Symptoms During Testing: Increases Lumbar Standing: Flexion - Symptoms After Testing: No worse Lumbar Standing: Extension - Mechanical Response: No effect Lumbar Standing: Extension - Symptoms During Testing: Decreases Lumbar Standing: Extension - Symptoms After Testing: No better Lumbar Standing: Right Side Glides - Mechanical Response: No effect Lumbar Standing: Right Side [place] - Symptoms During Testing: No effect Lumbar Standing: Right Side [place] - Symptoms After Testing: No effect Lumbar Standing: Left Side [place] - Mechanical Response: No effect Lumbar Standing: Left Side [place] - Symptoms During Testing: No effect Lumbar Standing: Left Side [place] - Symptoms After Testing: No effect - Balance/Special Test Scores Oswestry Low Back Score: 23 - Goals Goal 1:: Patient to be I with HEP lumbar Goal Time Frame: 4-6 Weeks Goal 2:: Patient to demonstrate 50% improvement with increase function and less pain Goal Time Frame: 4-6 Weeks Goal 3:: Patient to improve lumbar ROM for function of recovery to tie shoes Goal Time Frame: 4-6 Weeks Goal 4:: Patient to improve back oswestry score by 5 point to Improve QOL Goal Time Frame: 4-6 Weeks Goal 5:: Patient improve posture for ADL's 90 % OF THE TIME Goal Time Frame: 4-6 Weeks - Rehabilitation Potential Physical Therapy Diagnosis: Patient has lumbar pain worse with positioning and and motion testing standing walking better with sitting thus benefit from skilled PT Rehabilitation Potential: Good - Anticipated Interventions Patient/Client Instruction: Educate patient on: Condition, Plan of Care For the Purpose of:: To decrease pain, To improve nutrient delivery to tissue, To improve muscle performance and motor function, To improve ability to perform ADL's, To increase tolerance to activity/condition/position, To improve ability of physical actions for home/community/work/leisure, To improve health of tissue, To decrease soft tissue restriction, To increase flexibility/ROM, To improve endurance, To prevent re-injury, To improve tolerance to ADL's Therapeutic Exercise to Include: Strength training, Body mechanics, Postural training, Flexibilty training, Dynamic Lumbar Stabilization For the Purpose of:: To decrease pain, To increase ROM, To improve muscle performance and motor function, To increase tolerance to activity/condition/position, To improve ability of physical actions for home/community/work/leisure, To increase flexibility/ROM, To assume or resume ADL's, To reduce risk of recurrence, To improve self management, To improve tolerance to ADL's TENS: Yes IF ES: Yes Cryotherapy (ice pack, ice massage): Yes Thermo therapy (hot pack): Yes Ultrasound (thermal/non thermal): Yes For the Purpose of:: To decrease pain, To increase ROM, To improve nutrient delivery to tissue, To increase oxygenation perfusion, To improve health of tissue, To decrease soft tissue restriction Thank you for the opportunity to evaluate your patient. For Medicare and Medicare HMO plans, please review the plan of care and approve it. It will need to be FAXED BACK to us at [phone] for Medicare purposes. For Medicare only, by signing this I certify the plan of care. Please let me know if there are questions or concerns regarding this plan of care. Physician Sig nature: Date:
--- NOTE | 2022-04-22 11:42 | HP.PTREVAL ---
Dr. Herbert Singer, DO, It has been my pleasure to treat GASPER MERIDA over the last 6 visits for LOW BACK PAIN ,CHRONIC PAIN. Please see the progress note below for an update on the physical therapy plan of care! Subjective: Doingbgood ..no pain Objective/Function: Doing well overall no pain improved Plan Plan: PT INTERVENTIONS DLS ,MIKE EX'S ,POSTURAL EX'S ,MODALTIES AND POSTURE TRAINING /ACTIVITY MODIFICATION Balance/Gait/Functional tests - Balance/Special Test Scores Oswestry Low Back Score: 23 Goals Goal 1:: Patient to be I with HEP lumbar Goal Time Frame: 4-6 Weeks Goal 2:: Patient to demonstrate 50% improvement with increase function and less pain Goal Time Frame: 4-6 Weeks Goal 3:: Patient to improve lumbar ROM for function of recovery to tie shoes Goal Time Frame: 4-6 Weeks Goal 4:: Patient to improve back oswestry score by 5 point to Improve QOL Goal Time Frame: 4-6 Weeks Goal 5:: Patient improve posture for ADL's 90 % OF THE TIME Goal Time Frame: 4-6 Weeks Anticipated Interventions Patient/Client Instruction: Educate patient on: Condition, Plan of Care For the Purpose of:: To decrease pain, To improve nutrient delivery to tissue, To improve muscle performance and motor function, To improve ability to perform ADL's, To increase tolerance to activity/condition/position, To improve ability of physical actions for home/community/work/leisure, To improve health of tissue, To decrease soft tissue restriction, To increase flexibility/ROM, To improve endurance, To prevent re-injury, To improve tolerance to ADL's Therapeutic Exercise to Include: Strength training, Body mechanics, Postural training, Flexibilty training, Dynamic Lumbar Stabilization For the Purpose of:: To decrease pain, To increase ROM, To improve muscle performance and motor function, To increase tolerance to activity/condition/position, To improve ability of physical actions for home/community/work/leisure, To increase flexibility/ROM, To assume or resume ADL's, To reduce risk of recurrence, To improve self management, To improve tolerance to ADL's TENS: Yes IF ES: Yes Cryotherapy (ice pack, ice massage): Yes Thermo therapy (hot pack): Yes Ultrasound (thermal/non thermal): Yes For the Purpose of:: To decrease pain, To increase ROM, To improve nutrient delivery to tissue, To increase oxygenation perfusion, To improve health of tissue, To decrease soft tissue restriction Please do not hesitate to contact me at [phone] by phone or if you have questions or concerns regarding this new plan of care! Sincerely, Kevin Redd, PT, Cert MDT, OCS
--- NOTE | 2022-04-22 12:10 | HP.PTDCSUM ---
It has been my pleasure to treat GASPER MERIDA referred by Dr. Herbert Singer DO, with the diagnosis of LOW BACK PAIN ,CHRONIC PAIN for a total of 7 visit(s). Discharge Date: 04/22/22 Please see the following information for a summary of their discharge status. Subjective: Doing well Bilateral Back Pain Intensity (Out of 10): 0 Right Lower Extremity Pain Intensity (Out of 10): 0 % Improvement: 80 Objective/Function: POSTURE: WFL. GAIT: RECIPROCAL PATTERN. MMT: QUADS/HAMS/HIP 4/5. LUMBAR ROM: FLEXION WFL,EXTENSION Goal 1:: Patient to be I with HEP lumbar Goal Progress: Goal Met Goal 2:: Patient to demonstrate 50% improvement with increase function and less pain Goal Progress: Goal Met Goal 3:: Patient to improve lumbar ROM for function of recovery to tie shoes Goal Progress: Goal Met Goal 4:: Patient to improve back oswestry score by 5 point to Improve QOL Goal Progress: Goal Met Goal 5:: Patient improve posture for ADL's 90 % OF THE TIME Goal Progress: Goal Met Plan: D/C Discharge Comments: HEP If there are questions or concerns regarding this patient's physical therapy, please feel free to call me at [phone]. Thank you for the referral of this patient. Sincerely, Kevin Redd PT, Cert MDT, OCS Balance/Gait/Functional tests - Balance/Special Test Scores Oswestry Low Back Score: 0
== END 2022-04-22 19:00 | disposition home or self-care (01) ==
LOC: PT 11:30
PROVIDERS: PCP Family Medicine; Referring Provider Family Medicine; Visit Provider Family Medicine
DX: M54.50 Low back pain, unspecified (principal); G89.29 Other chronic pain
CPT/HCPCS: 97110; 97162; 97530

== ENCOUNTER → 2022-11-18 | Outpatient (CLI) | payer MEDICARE, SELFPAY ==
[2022-11-18 13:21] LABS: ALB/GLOB Ratio 0.9 RATIO (0.9-2.4); AST(SGOT) 18 U/L (15-37); Alanine Aminotransfer ALT/SGPT 28 U/L (13-56); Albumin, Serum 3.5 g/dL (3.2-5.0); Alkaline Phosphatase 116 U/L (45-117); Anion Gap 7 (5-15); BUN 19 mg/dL (7-18); BUN/Creat Ratio 20.7 RATIO (10-20); Calcium,Total 9.4 mg/dL (8.5-10.1); Chloride 105 mmol/L (98-107); Cholesterol 159 mg/dL (200); Creatinine, Serum 0.92 mg/dL (0.55-1.02); EST Glomerular Filtration Rate 65 mL/min (>60); Est Glom Filt Rate - Afr Amer 79 mL/min (>60); Globulin 3.9 g/dL (2.2-4.2); Glucose 170 mg/dL (74-106); High Density Lipoprotein 44 mg/dL; Potassium 4.2 mmol/L (3.5-5.1); Protein, Total 7.4 g/dL (6.4-8.2); Sodium Level 140 mmol/L (136-145); Triglycerides 252 mg/dL; Very Low Density Lipoprotein 50 mg/dL (5-40)
== END | disposition home or self-care (01) ==
LOC: BIMLAB 09:26
PROVIDERS: PCP Family Medicine; Visit Provider Family Medicine
DX: E11.9 Type 2 diabetes mellitus without complications (principal); Z79.4 Long term (current) use of insulin
CPT/HCPCS: 36415; 80053; 80061

== ENCOUNTER → 2022-11-19 | Outpatient (CLI) | payer MEDICARE, SELFPAY ==
--- NOTE | 2022-11-19 14:32 | BI_ITS ---
MAMMOGRAPHY - BILATERAL SCREENING REASON FOR EXAM: Female, 67 years old. Routine annual screening examination. PERTINENT HISTORY: Non-contributory. TECHNIQUE: Digital bilateral breast brianne (3D mammographic acquisition) in the CC and MLO projections. 2-D mediolateral oblique (MLO) and craniocaudad (CC) views of both breasts were obtained. CAD: Full Field Digital Mammography with Computer Added Detection was performed. COMPARISON: Comparison is made with prior study dated September 25, 2021. FINDINGS: Breast Composition: The breasts are almost entirely fatty. There are no dominant masses or suspicious calcifications. No other significant abnormalities are identified. There has been no significant change since the prior study. BI/SCRN MAMM (CAD)W/BRIANNE BILAT IMPRESSION: Stable bilateral screening mammogram. Yearly follow-up mammogram recommended. (A) ASSESSMENT CATEGORY: BIRADS Category 1: Negative. A letter regarding these results will be sent to the patient by the facility within 30 days. Approximately 10% of breast cancers are not detected by mammography. A normal mammogram should not delay biopsy of a clinically suspicious abnormality. [id number] Electronically Signed: Emerson Torres MD at 15:16 EDT ,
== END | disposition home or self-care (01) ==
LOC: OPBI 14:30
PROVIDERS: PCP Family Medicine; Referring Provider Family Medicine; Visit Provider Family Medicine
DX: Z12.31 Encounter for screening mammogram for malignant neoplasm of breast (principal)
CPT/HCPCS: 77063; 77067

== ENCOUNTER → 2023-06-24 | Outpatient (CLI) | payer MEDICARE, SELFPAY ==
--- NOTE | 2023-06-24 11:56 | RAD_ITS ---
STUDY: X-RAY - LEFT KNEE REASON FOR EXAM: Female, 67 years old. Knee pain. TECHNIQUE: 3 views of the left knee. COMPARISON: Left knee radiographs dated 01/11/2019. FINDINGS: Normal visualized distal femur. Normal visualized proximal tibia and fibula. Normal proximal tibiofibular articulation. There is no acute fracture, dislocation or destructive osseous pathology. There is unchanged mild degenerative arthrosis of the medial femorotibial compartment. There is unchanged mild degenerative arthrosis of the lateral femorotibial compartment. There is unchanged mild degenerative arthrosis of the patellofemoral articulation. There is no demonstrated joint effusion. There are atherosclerotic calcifications. RAD/Knee 3 Views IMPRESSION: Unchanged mild tricompartment degenerative arthrosis. Electronically Signed: David Hernandez MD at 14:28 EST ,
--- OUTSIDE RECORDS SUMMARY | 2023-06-24 12:32 | XMS RPT_ITS | CCD ---
Author Name Unknown Address [address] [place] [address] Organization [facility] Care Team Providers Care Restoration Officer Name Role Phone Corona Ramey MD Unavailable KEO Narayan RN, Lolly Fuentes Unavailable Unavailabl e KEO Narayan RN, Lolly Fuentes Unavailable Unavailfeliciano e Medications Completed/Discontinued Medications Medication Drug Class(es) Dates Sig (Normalized) Sig (Original) amoxicillin 875 mg / clavulanate 125 mg oral tablet (4 sources) Penicillin-class Antibacterial Start: 10-26-2016 take 1 tablet by mouth twice daily AMOXICILLIN-POT CLAVULANATE 875-125 MG TABS 1 tab PO Twice daily AMOXICILLIN-POT CLAVULANATE [id number] Corona Ramey MD atorvastatin 20 mg oral tablet (4 sources) HMG-CoA Reductase Inhibitor take 1 tablet by mouth once daily LIPITOR 20 MG TABS One tablet by mouth daily ATORVASTATIN CALCIUM [id number] Elizabeth Buckner empagliflozin 10 mg oral tablet (4 sources) Sodium-Glucose Cotransporter 2 Inhibitor take 1 tablet by mouth once daily JARDIANCE 10 MG TABS One tablet by mouth daily EMPAGLIFLOZIN [id number] Lolly Narayan RN RN 24 hr glipiZIDE 2.5 mg extended release oral tablet (8 sources) Sulfonylurea End: 10-26-2016 take 1 tablet by mouth once daily GLIPIZIDE ER 2.5 MG [id number] One tablet by mouth daily GLIPIZIDE [id number] Lolly Narayan RN RN INSULIN GLARGINE SOLN (8 sources) Insulin Analogue LANTUS SOLOSTAR SOPN 70 units daily INSULIN GLARGINE SOLN [id number] Lolly Narayan RN RN Problems Active Problems Problem Classification Problem Date Documented Da te Episodic/Chronic Other nutritional; endocrine; and metabolic disorders (8 sources) Body mass index (BMI) 39.0-39.9, adult; Translations: [Overweight] Onset: 10-26-2016 10-26-2016 Chronic Past or Other Problems Problem Classification Problem Date Documented Da te Episodic/Chronic Biliary tract disease (4 sources) Acute cholecystitis; Translations: [Acute cholecystitis] Onset: 10-26-2016 10-26-2016 Episodic Other connective tissue disease (4 sources) Panniculitis, unspecified; Translations: [Panniculitis, unspecified] Onset: 07-08-2010 07-13-2010 Episodic Other inflammatory condition of skin (4 sources) Other specified erythematous conditions; Translations: [Other specified erythematous conditions] Onset: 07-08-2010 07-13-2010 Episodic Results Test Name Value Interpretation Reference Range Facil ity Vital Signs Date Time Vital Sign Value Performing Clinician Facility 11-11-2016 12:56-0400 BMI (Body Mass Index) 40.47 kg/m2 Corona Ramey MD [facility] Work Phone: 11-11-2016 12:56-0400 Body Temperature 97.8 [degF] Corona Ramey MD [facility] Work Phone: 11-11-2016 12:56-0400 Body Temperature 97.81 [degF] Corona Ramey MD [facility] Work Phone: 11-11-2016 12:56-0400 BP Diastolic 79 mm[Hg] Corona Ramey MD [facility] Work Phone: 11-11-2016 12:56-0400 BP Systolic 119 mm[Hg] Corona Ramey MD [facility] Work Phone: 11-11-2016 12:56-0400 Height 166.37 cm Corona Ramey MD [facility] Work Phone: 11-11-2016 12:56-0400 Pulse (Heart Rate) 66 /min Corona Ramey MD [facility] Work Phone: 11-11-2016 12:56-0400 Pulse Oximetry 98 % Corona Ramey MD [facility] Work Phone: 11-11-2016 12:56-0400 Respiratory Rate 16 /min Corona Ramey MD [facility] Work Phone: 11-11-2016 12:56-0400 Weight 112.04 kg Corona Ramey MD [facility] Work Phone: 10-26-2016 10:18-0400 BMI (Body Mass Index) 39.98 kg/m2 Lolly Narayan RN RN [facility] Work Phone: 10-26-2016 10:18-0400 Body Temperature 97.8 [degF] Lolly Narayan RN RN [facility] Work Phone: 10-26-2016 10:18-0400 Body Temperature 97.81 [degF] Lolly Narayan RN RN [facility] Work Phone: 10-26-2016 10:18-0400 BP Diastolic 78 mm[Hg] Lolly Narayan RN RN [facility] Work Phone: 10-26-2016 10:18-0400 BP Systolic 114 mm[Hg] Lolly Narayan RN RN [facility] Work Phone: 10-26-2016 10:18-0400 BSA (Body Surface Area) 2.17 m2 Lolly Narayan RN RN [facility] Work Phone: 10-26-2016 10:18-0400 Height 166.37 cm Lolly Narayan RN RN [facility] Work Phone: 10-26-2016 10:18-0400 Pulse (Heart Rate) 79 /min Lolly Narayan RN RN [facility] Work Phone: 10-26-2016 10:18-0400 Pulse Oximetry 97 % Lolly Narayan RN RN [facility] Work Phone: 10-26-2016 10:18-0400 Respiratory Rate 16 /min Lolly Narayan RN RN [facility] Work Phone: 10-26-2016 10:18-0400 Weight 110.68 kg Lolly Narayan RN RN [facility] Work Phone: Plan of Treatment Date Care Activity Detail Author Start: 11-11-2016 End: 11-11-2016 Appointment Appointment [facility] Work Phone: Start: 11-11-2016 End: 11-11-2016 Follow-up visit Follow Up as needed [facility] Work Phone: Start: 10-28-2016 End: 10-28-2016 Appointment Appointment [facility] Work Phone: Start: 10-26-2016 End: 10-26-2016 Appointment Appointment [facility] Work Phone: Patient Education WEIGHT%20MANAGEMENT [facility] [employer] Work Phone: Additional Source Comments FOR RECORDS PERTAINING TO PATIENTS WHO ARE OR HAVE BEEN ENROLLED IN A CHEMICAL DEPENDENCY/SUBSTANCEABUSE PROGRAM, SOME INFORMATION MAY BE OMITTED. This clinical summary was aggregated from multiple sources. Caution should be exercised in using it in the provision of clinical care. This summary normalizes information from multiple sources, and as a consequence, information in this document may materially change the coding, format and clinical context of patient data. In addition, data may be omitted in some cases. CLINICAL DECISIONS SHOULD BE BASED ON THE PRIMARY CLINICAL RECORDS. [facility] [employer] [facility]. provides no warranty or guarantee of the accuracy or completeness of information in this document.
== END | disposition home or self-care (01) ==
LOC: MTRAD 11:56
PROVIDERS: PCP Family Medicine; Referring Provider Family Medicine; Visit Provider Family Medicine
DX: M25.562 Pain in left knee (principal)
CPT/HCPCS: 73562

== ENCOUNTER → 2023-12-01 | Outpatient (CLI) | payer MEDICARE, SELFPAY ==
[2023-12-01 14:03] LABS: ALB/GLOB Ratio 1.1 RATIO (0.9-2.4); AST(SGOT) 14 U/L (15-37); Alanine Aminotransfer ALT/SGPT 23 U/L (13-56); Albumin, Serum 3.5 g/dL (3.2-5.0); Alkaline Phosphatase 116 U/L (45-117); Anion Gap 7 (5-15); BUN 18 mg/dL (7-18); BUN/Creat Ratio 22.2 RATIO (10-20); Calcium,Total 9.2 mg/dL (8.5-10.1); Chloride 106 mmol/L (98-107); Cholesterol 162 mg/dL (200); Creatinine, Serum 0.81 mg/dL (0.55-1.02); EST Glomerular Filtration Rate 75 mL/min (>60); Est Glom Filt Rate - Afr Amer 90 mL/min (>60); Globulin 3.2 g/dL (2.2-4.2); Glucose 116 mg/dL (74-106); High Density Lipoprotein 49 mg/dL; Potassium 4.7 mmol/L (3.5-5.1); Protein, Total 6.7 g/dL (6.4-8.2); Sodium Level 140 mmol/L (136-145); Triglycerides 228 mg/dL; Very Low Density Lipoprotein 46 mg/dL (5-40)
== END | disposition home or self-care (01) ==
LOC: BIMLAB 09:46
PROVIDERS: PCP Family Medicine; Referring Provider Family Medicine; Visit Provider Family Medicine
DX: E11.9 Type 2 diabetes mellitus without complications (principal); Z79.4 Long term (current) use of insulin
CPT/HCPCS: 36415; 80053; 80061

== ENCOUNTER → 2023-12-22 | Outpatient (CLI) | payer MEDICARE, SELFPAY ==
--- NOTE | 2023-12-22 08:03 | BI_ITS ---
MAMMOGRAPHY - BILATERAL SCREENING 3-D TOMOSYNTHESIS REASON FOR EXAM: Female, 68 years old. screening PERTINENT HISTORY: No significant family history. TECHNIQUE: 2-D mammograms and 3-D Tomosynthesis of the breast (s) were performed. CAD was performed. COMPARISON: 11/19/2022 FINDINGS: The breast composition is composed of scattered fibroglandular density. Scattered benign calcifications are seen. No dense spiculated masses or suspicious microcalcifications are identified. No architectural distortion is identified. There is no skin thickening or retraction. There has been no significant change since the prior study. BI/SCRN MAMM (CAD)W/BRIANNE BILAT IMPRESSION: No mammographic signs of malignancy. Routine yearly mammograms recommended. ASSESSMENT CATEGORY: BIRADS Category 1: Negative. A letter regarding these results will be sent to the patient by the facility within 30 days. FOLLOW UP RECOMMENDATION: Yearly follow up mammogram recommended. (A) Approximately 10% of breast cancers are not detected by mammography. A normal mammogram should not delay biopsy of a clinically suspicious abnormality. Electronically Signed: Leonel Ron MD at 18:54 EDT ,
== END | disposition home or self-care (01) ==
LOC: OPBI 08:02
PROVIDERS: PCP Family Medicine; Referring Provider Family Medicine; Visit Provider Family Medicine
DX: Z12.31 Encounter for screening mammogram for malignant neoplasm of breast (principal)
CPT/HCPCS: 77063; 77067

== ENCOUNTER → 2024-11-29 | Outpatient (CLI) | payer MEDICARE, SELFPAY ==
[2024-11-29 13:32] LABS: ALB/GLOB Ratio 1.3 RATIO (0.9-2.4); AST(SGOT) 22 U/L (<=31); Alanine Aminotransfer ALT/SGPT 27 U/L (<=34); Alkaline Phosphatase 111 U/L (35-104); Anion Gap 12 (5-15); BUN 20 mg/dL (4-19); BUN/Creat Ratio 27.9 RATIO (10-20); Calcium,Total 9.3 mg/dL (7.6-11.0); Chloride 104 mmol/L (98-108); Cholesterol 158 mg/dL (<=200); Creatinine, Serum 0.71 mg/dL (0.70-1.20); EST Glomerular Filtration Rate 92 (>60); Globulin 3.1 g/dL (2.2-4.2); Glucose 136 mg/dL (70-99); High Density Lipoprotein 45 mg/dL; Low Density Lipoprotein Calc. 68 mg/dL; Potassium 4.6 mmol/L (3.3-5.1); Sodium Level 139 mmol/L (133-145); Total Bilirubin 0.57 mg/dL (0.00-1.30); Triglycerides 227 mg/dL; Very Low Density Lipoprotein 45 mg/dL (5-40); cholesterol:hdl ratio screen 3.54
== END | disposition home or self-care (01) ==
LOC: BIMLAB 10:03
PROVIDERS: PCP Family Medicine; Referring Provider Family Medicine; Visit Provider Family Medicine
DX: E11.9 Type 2 diabetes mellitus without complications (principal); Z79.4 Long term (current) use of insulin
CPT/HCPCS: 36415; 80053; 80061